=== PATIENT | female | born 1960 | race Caucasian/White ===

== ENCOUNTER 2018-03-02 10:40 | Emergency (ER) | payer OTHER ==
[~2018-03-02] VITALS: Ht 149.9 cm; Wt 61.0 kg
[~2018-03-02 10:40] MED LIST: CHILD ASPIRIN81 M1 PO; FISH OIL300 MG PO; METHIMAZOLE5 MG
[2018-03-02 11:11] LABS: HEMATOCRIT 43.5 % (36.0-46.0); MCH 32.1 PG (29.0-34.0); MCHC 34.5 G/DL (30.0-36.0); MCV 93.1 FL (83-99); PLATELET COUNT 234 K/uL (156-360); RBC DIS.WIDTH-CV 12.9 % (11.8-14.6); RBC DIS.WIDTH-SD 43.9 % (39-53); RED BLOOD COUNT 4.67 M/uL (3.80-5.20); WHITE BLOOD COUNT 7.7 K/uL (4.1-10.2)
[2018-03-02 11:21] LABS: CHLORIDE 105 mEq/L (99-109); POTASSIUM 4.2 mEq/L (3.7-5.4); SODIUM 141 mEq/L (136-147)
[2018-03-02 11:23] LABS: GLUCOSE 100 mg/dL (70-99)
[2018-03-02 11:27] LABS: CREATININE 0.7 mg/dL (0.6-1.3); GFR ESTIMATE (CALCULATED) > 59 mL/min/
[2018-03-02 11:28] LABS: UREA NITROGEN (BUN) 14 mg/dL (9-23)
[2018-03-02 11:34] LABS: TROP-I INTERPRETATION NEGATIVE; TROPONIN-I < 0.01 ng/mL (0.0-0.30)
[2018-03-02 14:21] LABS: TROP-I INTERPRETATION NEGATIVE; TROPONIN-I < 0.01 ng/mL (0.0-0.30)
[2018-03-02 15:01] VITALS: BP 136/79
== END 2018-03-02 15:05 | disposition home or self-care (01) ==
LOC: EME 10:40
PROVIDERS: Emergency Medicine
DX: R07.89 Other chest pain (principal); E05.00 Thyrotoxicosis with diffuse goiter without thyrotoxic crisis or storm; F17.200 Nicotine dependence, unspecified, uncomplicated; Z79.82 Long term (current) use of aspirin; Z88.2 Allergy status to sulfonamides; Z88.1 Allergy status to other antibiotic agents
CPT/HCPCS: 71046; 80048; 84484; 85027; 93005; 99281; 99284